=== PATIENT | male | born 1985 | race Hispanic/Latino ===

== ENCOUNTER 2019-03-20 17:00 | Outpatient (RCR) | payer BC | END 2019-03-27 | LOC: PT 17:00 | PROVIDERS: ATTEND Neurological Surgery | DX: M51.24 Other intervertebral disc displacement, thoracic region (principal); M62.81 Muscle weakness (generalized) ==

== ENCOUNTER 2019-04-08 10:43 | Outpatient (RCR) | payer BC | END 2019-04-27 | LOC: PT 10:43 | PROVIDERS: ATTEND Neurological Surgery | DX: M51.24 Other intervertebral disc displacement, thoracic region (principal); M62.81 Muscle weakness (generalized) ==

== ENCOUNTER 2019-11-20 15:05 | Outpatient (RCR) | payer BC | END 2019-11-26 | LOC: PT 15:05 | PROVIDERS: ATTEND Neurological Surgery | DX: M51.24 Other intervertebral disc displacement, thoracic region (principal) ==

== ENCOUNTER 2019-12-09 17:00 | Outpatient (RCR) | payer BC | END 2019-12-26 | LOC: PT 17:00 | PROVIDERS: ATTEND Neurological Surgery | DX: M51.24 Other intervertebral disc displacement, thoracic region (principal) ==

== ENCOUNTER 2021-10-14 13:22 | Inpatient (IN) | payer BC ==
[~2021-10-14] VITALS: Ht 180.3 cm; Wt 188.2 kg
[2021-10-14] MEDS ORDERED: ASPIRIN 81 MG CHEW TAB PO ONE (13:45)
[2021-10-14 14:12] LABS: BASOPHILS % 0.3 % (0.0-1.0); EOSINOPHILS # (AUTO) 0.1 (0.0-0.4); EOSINOPHILS % 1.3 % (0.0-6.0); HEMATOCRIT 45.3 % (38.2-49.6); HEMOGLOBIN 13.6 g/dL (14.0-18.0); LYMPHOCYTES # (AUTO) 1.9 (1.0-3.2); LYMPHOCYTES % 21.1 % (18.0-39.1); MEAN CORPUSCULAR HEMOGLOBIN 25.9 pg (28-32); MEAN CORPUSCULAR VOLUME 86.1 fL (81-99); MONOCYTES # (AUTO) 0.4 (0.2-0.8); NEUTROPHILS # (AUTO) 6.3 (2.1-6.9); NEUTROPHILS % 71.7 % (38.7-80.0); PLATELET COUNT 258 x10e3/uL (140-360); RED BLOOD COUNT 5.26 x10e6/uL (4.3-5.7); RED CELL DISTRIBUTION WIDTH 15.8 % (11.7-14.4)
[2021-10-14 14:33] LABS: ALBUMIN/GLOBULIN RATIO 0.6 (0.8-2.0); ANION GAP 15.7 mmol/L (8-16); CREATININE, SERUM 0.79 mg/dL (0.72-1.25); POTASSIUM 3.7 mmol/L (3.5-5.1)
[2021-10-14 14:39] LABS: CREATINE KINASE MB 1.7 ng/mL (0-5.0)
[2021-10-14 17:44] VITALS: BP 162/78
[2021-10-14] MEDS ORDERED: ACETAMINOPHEN 325 MG TAB PO PRN (18:00)
[2021-10-14] MEDS ORDERED: ONDANSETRON HCL INJ 2MG/ML 2ML 2 MG/ML VIAL IV PRN (18:00)
[2021-10-14] MEDS ORDERED: HYDRALAZINE HCL 20 MG/ML VIAL IV PRN (18:00)
[2021-10-14 18:14] VITALS: BP 162/78
[2021-10-14] MEDS ORDERED: DEXTROSE 50% SYRINGE 50 ML IV PRN (18:15)
[2021-10-14 20:00] VITALS: BP 155/100
[2021-10-14] MEDS: INSULIN REGULAR, HUMAN 100 UNIT/1 ML SQ SCH (20:08)
[2021-10-14 21:00] VITALS: BP 155/101
[2021-10-14 21:21] LABS: CREATINE KINASE MB 1.5 ng/mL (0-5.0)
[2021-10-15] VITALS (8 sets, daily range): BP systolic 134–166; BP diastolic 75–119
[2021-10-15 05:02] LABS: BASOPHILS % 0.2 % (0.0-1.0); EOSINOPHILS # (AUTO) 0.2 (0.0-0.4); EOSINOPHILS % 2.2 % (0.0-6.0); HEMOGLOBIN 13.3 g/dL (14.0-18.0); LYMPHOCYTES # (AUTO) 2.1 (1.0-3.2); LYMPHOCYTES % 25.6 % (18.0-39.1); MEAN CORPUSCULAR HEMOGLOBIN 25.3 pg (28-32); MEAN CORPUSCULAR HGB CONC 29.6 g/dL (31-35); MEAN CORPUSCULAR VOLUME 85.7 fL (81-99); MONOCYTES # (AUTO) 0.5 (0.2-0.8); NEUTROPHILS # (AUTO) 5.3 (2.1-6.9); NEUTROPHILS % 65.1 % (38.7-80.0); PLATELET COUNT 252 x10e3/uL (140-360); RED BLOOD COUNT 5.25 x10e6/uL (4.3-5.7); RED CELL DISTRIBUTION WIDTH 15.8 % (11.7-14.4)
[2021-10-15 05:40] LABS: ALBUMIN 2.9 g/dL (3.5-5.0); ALBUMIN/GLOBULIN RATIO 0.6 (0.8-2.0); ANION GAP 14.7 mmol/L (8-16); CREATININE, SERUM 0.76 mg/dL (0.72-1.25); POTASSIUM 3.7 mmol/L (3.5-5.1)
[2021-10-15 06:33] LABS: CREATINE KINASE MB 1.5 ng/mL (0-5.0)
[2021-10-15] MEDS: INSULIN REGULAR, HUMAN 100 UNIT/1 ML SQ SCH ×4 (07:30→21:12)
[2021-10-15] MEDS ORDERED: FUROSEMIDE INJ 10 MG/ML 4 ML VIAL IV SCH (09:00)
[2021-10-15] MEDS ORDERED: METOLAZONE 5 MG TAB PO ONE (10:00)
[2021-10-15] MEDS: METOPROLOL SUCCINATE 25 MG TAB XL PO SCH (10:11)
[2021-10-15] MEDS: ASPIRIN 81 MG ENTERIC COATED PO SCH (10:11)
[2021-10-15] MEDS: FUROSEMIDE INJ 10 MG/ML 4 ML VIAL IV SCH ×2 (13:43→21:16)
[2021-10-15] MEDS: ENOXAPARIN SOD INJ 40 MG/0.4 ML SYR SC SCH (16:18)
[2021-10-15 16:46] LABS: CREATINE KINASE MB 1.8 ng/mL (0-5.0)
[2021-10-15] MEDS ORDERED: IOPAMIDOL 370 MG/ML 200 ML INFUS..BTL INJ ONE (16:53)
[2021-10-15] MEDS ORDERED: SODIUM CHLORIDE 0.9% 50ML 50 ML ONE (16:54)
[2021-10-15] MEDS: INSULIN GLARGINE 100 UNITS/ML VIAL SQ SCH (21:16)
[2021-10-16] VITALS (8 sets, daily range): BP systolic 100–127; BP diastolic 47–81
[2021-10-16] MEDS: FUROSEMIDE INJ 10 MG/ML 4 ML VIAL IV SCH ×3 (06:33→20:37)
[2021-10-16 06:52] LABS: ALBUMIN 3.3 g/dL (3.5-5.0); ALBUMIN/GLOBULIN RATIO 0.6 (0.8-2.0); ANION GAP 20.1 mmol/L (8-16); CALCIUM 10.5 mg/dL (8.4-10.2); CHOL/HDL RATIO 6.8 (3.9-4.7); CREATININE, SERUM 1.13 mg/dL (0.72-1.25); MAGNESIUM 2.1 MG/DL (1.3-2.1); POTASSIUM 3.1 mmol/L (3.5-5.1)
[2021-10-16] MEDS ORDERED: LOSARTAN POTASSIUM 25 MG TAB PO SCH (09:00)
[2021-10-16] MEDS: ASPIRIN 81 MG ENTERIC COATED PO SCH (09:47)
[2021-10-16] MEDS: METOPROLOL SUCCINATE 25 MG TAB XL PO SCH (09:48)
[2021-10-16] MEDS: INSULIN REGULAR, HUMAN 100 UNIT/1 ML SQ SCH ×4 (09:49→20:37)
[2021-10-16] MEDS: METOLAZONE 5 MG TAB PO SCH (12:25)
[2021-10-16] MEDS: POTASSIUM CHLORIDE 20 MEQ TAB CR PO SCH (12:25)
[2021-10-16] MEDS: CARVEDILOL 12.5 MG TAB PO SCH (17:19)
[2021-10-16] MEDS: ENOXAPARIN SOD INJ 40 MG/0.4 ML SYR SC SCH (17:19)
[2021-10-16] MEDS: CRESTOR 10MG PO SCH (20:37)
[2021-10-16] MEDS: INSULIN GLARGINE 100 UNITS/ML VIAL SQ SCH (20:37)
[2021-10-17] VITALS (9 sets, daily range): BP systolic 90–137; BP diastolic 52–91
[2021-10-17] MEDS ORDERED: LORATADINE 10 MG TAB PO ONE (01:00)
[2021-10-17 06:00] LABS: ALBUMIN 3.2 g/dL (3.5-5.0); ALBUMIN/GLOBULIN RATIO 0.6 (0.8-2.0); CALCIUM 10.8 mg/dL (8.4-10.2); CREATININE, SERUM 1.41 mg/dL (0.72-1.25)
[2021-10-17] MEDS: FUROSEMIDE INJ 10 MG/ML 4 ML VIAL IV SCH ×3 (06:18→21:12)
[2021-10-17] MEDS ORDERED: LOSARTAN POTASSIUM 25 MG TAB PO SCH (09:00)
[2021-10-17] MEDS: CARVEDILOL 12.5 MG TAB PO SCH ×2 (10:18→17:36)
[2021-10-17] MEDS: LORATADINE 10 MG TAB PO SCH ×2 (10:18→21:25)
[2021-10-17] MEDS: ASPIRIN 81 MG ENTERIC COATED PO SCH (10:18)
[2021-10-17] MEDS: POTASSIUM CHLORIDE 20 MEQ TAB CR PO SCH (10:19)
[2021-10-17] MEDS: METOLAZONE 5 MG TAB PO SCH (10:19)
[2021-10-17] MEDS: INSULIN REGULAR, HUMAN 100 UNIT/1 ML SQ SCH ×4 (10:25→21:17)
[2021-10-17] MEDS: ENOXAPARIN SOD INJ 40 MG/0.4 ML SYR SC SCH (17:36)
[2021-10-17] MEDS: CRESTOR 10MG PO SCH (21:12)
[2021-10-17] MEDS: INSULIN GLARGINE 100 UNITS/ML VIAL SQ SCH (21:17)
[2021-10-18 05:32] VITALS: BP 107/53
[2021-10-18 06:19] LABS: CALCIUM 11.3 mg/dL (8.4-10.2); CREATININE, SERUM 1.51 mg/dL (0.72-1.25)
[2021-10-18] MEDS: FUROSEMIDE INJ 10 MG/ML 4 ML VIAL IV SCH ×3 (06:52→16:45)
[2021-10-18] MEDS: INSULIN REGULAR, HUMAN 100 UNIT/1 ML SQ SCH ×4 (08:37→20:44)
[2021-10-18] MEDS: LORATADINE 10 MG TAB PO SCH (08:38)
[2021-10-18] MEDS: ASPIRIN 81 MG ENTERIC COATED PO SCH (08:38)
[2021-10-18] MEDS: CARVEDILOL 12.5 MG TAB PO SCH (08:42)
[2021-10-18] MEDS: LOSARTAN POTASSIUM 25 MG TAB PO SCH (08:43)
[2021-10-18] MEDS: POTASSIUM CHLORIDE 20 MEQ TAB CR PO SCH (08:43)
[2021-10-18] MEDS ORDERED: POTASSIUM CHLORIDE 20 MEQ TAB CR PO ONE (09:00)
[2021-10-18] MEDS: ENOXAPARIN SOD INJ 40 MG/0.4 ML SYR SC SCH (16:45)
[2021-10-18] MEDS: CARVEDILOL 3.125 MG TAB PO SCH (16:45)
[2021-10-18 19:42] VITALS: BP 93/55
[2021-10-18 20:03] VITALS: BP 93/55
[2021-10-18] MEDS: CRESTOR 10MG PO SCH (20:42)
[2021-10-18] MEDS: INSULIN GLARGINE 100 UNITS/ML VIAL SQ SCH (20:45)
[2021-10-18 21:02] VITALS: BP 93/55
[2021-10-19] VITALS (8 sets, daily range): BP systolic 93–116; BP diastolic 46–78
[2021-10-19 05:37] LABS: ALBUMIN 3.2 g/dL (3.5-5.0); ALBUMIN/GLOBULIN RATIO 0.6 (0.8-2.0); ANION GAP 19.9 mmol/L (8-16); CALCIUM 10.9 mg/dL (8.4-10.2); CREATININE, SERUM 1.57 mg/dL (0.72-1.25); MAGNESIUM 2.2 MG/DL (1.3-2.1); POTASSIUM 3.9 mmol/L (3.5-5.1)
[2021-10-19] MEDS: INSULIN REGULAR, HUMAN 100 UNIT/1 ML SQ SCH ×4 (08:55→21:00)
[2021-10-19] MEDS: BALSAM PERU/CASTOR OIL 60 GM OINT...G. TP SCH (08:59)
[2021-10-19] MEDS: LOSARTAN POTASSIUM 25 MG TAB PO SCH (08:59)
[2021-10-19] MEDS: LORATADINE 10 MG TAB PO SCH (08:59)
[2021-10-19] MEDS: CARVEDILOL 3.125 MG TAB PO SCH ×2 (08:59→17:13)
[2021-10-19] MEDS: ASPIRIN 81 MG ENTERIC COATED PO SCH (08:59)
[2021-10-19] MEDS: POTASSIUM CHLORIDE 20 MEQ TAB CR PO SCH (08:59)
[2021-10-19] MEDS: FUROSEMIDE INJ 10 MG/ML 4 ML VIAL IV SCH (09:00)
[2021-10-19] MEDS: ENOXAPARIN SOD INJ 40 MG/0.4 ML SYR SC SCH (17:13)
[2021-10-19] MEDS: FUROSEMIDE 40 MG TAB PO SCH (17:14)
[2021-10-19] MEDS: CRESTOR 10MG PO SCH (21:00)
[2021-10-19] MEDS: INSULIN GLARGINE 100 UNITS/ML VIAL SQ SCH (21:00)
[2021-10-20] VITALS: BP 133/63
[2021-10-20 04:21] VITALS: BP 106/75
[2021-10-20 05:32] LABS: ALBUMIN 3.3 g/dL (3.5-5.0); ALBUMIN/GLOBULIN RATIO 0.6 (0.8-2.0); ANION GAP 17.2 mmol/L (8-16); CALCIUM 10.4 mg/dL (8.4-10.2); CREATININE, SERUM 1.21 mg/dL (0.72-1.25); POTASSIUM 3.2 mmol/L (3.5-5.1)
[2021-10-20] MEDS: FUROSEMIDE 40 MG TAB PO SCH (06:04)
[2021-10-20] MEDS: INSULIN REGULAR, HUMAN 100 UNIT/1 ML SQ SCH ×2 (07:30→11:30)
[2021-10-20 08:25] VITALS: BP 110/92
[2021-10-20] MEDS: ASPIRIN 81 MG ENTERIC COATED PO SCH (08:25)
[2021-10-20] MEDS: LORATADINE 10 MG TAB PO SCH (08:25)
[2021-10-20] MEDS: CARVEDILOL 3.125 MG TAB PO SCH (08:26)
[2021-10-20] MEDS: POTASSIUM CHLORIDE 20 MEQ TAB CR PO SCH (08:26)
[2021-10-20] MEDS: BALSAM PERU/CASTOR OIL 60 GM OINT...G. TP SCH (08:27)
[2021-10-20] MEDS ORDERED: ONDANSETRON HCL 4 MG ORAL DISINTEGRATING TAB PO PRN (09:15)
[2021-10-20 09:33] VITALS: BP 110/92
[2021-10-20 11:54] VITALS: BP 104/63
[2021-10-20] MEDS ORDERED: ASPIRIN EC81 MG PO (14:25)
[2021-10-20] MEDS ORDERED: COREG3.125 MG PO (14:25)
[2021-10-20] MEDS ORDERED: FUROSEMIDE40 MG PO (14:25)
[2021-10-20] MEDS ORDERED: SIMVASTATIN40 MG PO (14:25)
[2021-10-20] MEDS ORDERED: SIMVASTATIN 40 MG TAB PO SCH (21:00)
== END 2021-10-20 16:02 | disposition home or self-care (01) | DRG 291 ==
LOC: ER 13:31 → ERHOLD 15:06 → IMCU 16:55 → MED/SURG2 10-19 18:05
PROVIDERS: ADMIT Internal Medicine; ATTEND Internal Medicine
DX: I11.0 Hypertensive heart disease with heart failure (principal); J18.9 Pneumonia, unspecified organism; U07.1 COVID-19; I50.43 Acute on chronic combined systolic (congestive) and diastolic (congestive) heart failure; N17.9 Acute kidney failure, unspecified; Z68.44 Body mass index [BMI] 60.0-69.9, adult; G47.33 Obstructive sleep apnea (adult) (pediatric); K76.0 Fatty (change of) liver, not elsewhere classified; E11.65 Type 2 diabetes mellitus with hyperglycemia; E66.01 Morbid (severe) obesity due to excess calories; Z86.16 Personal history of COVID-19; N50.89 Other specified disorders of the male genital organs; Z91.14 Patient's other noncompliance with medication regimen; I27.20 Pulmonary hypertension, unspecified
CPT/HCPCS: 36415; 71045; 71260; 76700; 80048; 80053; 80061; 82550; 82553; 82948; 83036; 83735; 83880; 84443; 84484; 85025; 93005; 93306; 93970; 94799; 96372; 99251; 99284; J0360; J1650; J1815; J1817; J1940; Q9967; U0002